=== PATIENT | female | born 2000 | race Caucasian/White ===

== ENCOUNTER 2018-05-09 07:41 | Day surgery (SDC) ==
[~2018-05-09 07:41] MED LIST: BRIMONIDINE TARTRATE 0.2% OPTH SOL OP PRN; BSS WITH EPINEPHRINE OP ONE; DEX-MOXI-KETOR OPTH INJ 1/0.5/0.4 MG/ML IO ONE; LIDOCAINE 1% 20 ML MDV ID STA; LIDOCAINE 1%/PHENYLEPHRINE 1.5% BSS (SURGERY) INTRAOCULA ONE
[2018-05-09] MEDS: TETRACAINE 0.5% UNIT-DOSE OP PRN ×4 (08:18→09:09)
[2018-05-09] MEDS: CYCLOGYL 2% OPTH OP PRN ×3 (08:18→08:28)
[2018-05-09] MEDS: BETADINE OPTH PREP OP PRN ×2 (08:18→09:05)
[2018-05-09] MEDS ORDERED: VERSED ONE (09:00)
[2018-05-09] MEDS ORDERED: SUBLIMAZE ONE (09:00)
[2018-05-09 12:20] VITALS: TEMP 98.6
[2018-05-09 13:31] VITALS: BP 126/67
== END 2018-05-09 09:55 | disposition home or self-care (01) ==
LOC: SURG 07:41
PROVIDERS: ATTEND Ophthalmology
DX: H52.201 Unspecified astigmatism, right eye (principal)
CPT/HCPCS: 36415; 84703

== ENCOUNTER 2018-05-23 09:39 | Day surgery (SDC) ==
[2018-05-23] MEDS: TETRACAINE 0.5% UNIT-DOSE OP PRN ×2 (10:42→11:34)
[2018-05-23] MEDS: BETADINE OPTH PREP OP PRN ×2 (10:42→11:20)
[2018-05-23] MEDS: CYCLOGYL 2% OPTH OP PRN ×3 (10:43→10:53)
[2018-05-23] MEDS ORDERED: DEX-MOXI-KETOR OPTH INJ 1/0.5/0.4 MG/ML IO ONE (10:44)
[2018-05-23] MEDS ORDERED: BSS WITH EPINEPHRINE OP ONE (10:44)
[2018-05-23] MEDS ORDERED: ZOFRAN 4 MG/2 ML IVP ONE (10:44)
[2018-05-23] MEDS ORDERED: LIDOCAINE 1%/PHENYLEPHRINE 1.5% BSS (SURGERY) INTRAOCULA ONE (10:44)
[2018-05-23] MEDS ORDERED: BRIMONIDINE TARTRATE 0.2% OPTH SOL OP PRN (10:44)
[2018-05-23] MEDS ORDERED: LIDOCAINE 1% 20 ML MDV ID STA (10:44)
[2018-05-23 10:50] VITALS: TEMP 98.1
[2018-05-23] MEDS ORDERED: VERSED ONE (11:29)
[2018-05-23] MEDS ORDERED: SUBLIMAZE ONE (11:29)
[2018-05-26 11:20] VITALS: BP 112/67
== END 2018-05-23 12:20 | disposition home or self-care (01) ==
LOC: SURG 09:39
PROVIDERS: ATTEND Ophthalmology
DX: H52.7 Unspecified disorder of refraction (principal)
CPT/HCPCS: 81025